=== PATIENT | male | born 1965 | race Caucasian/White ===

== ENCOUNTER 2024-05-22 17:06 | Emergency (ER) | payer SELFPAY ==
[~2024-05-22] VITALS: Ht 170.2 cm; Wt 70.0 kg
[2024-05-22 17:12] VITALS: BP 123/73; PULSE 95; RESP 18; TEMP 98.7; O2SAT 98
[2024-05-22] MEDS: HYDROCODONE/ACETAMINOPHEN 5/325MG TABLET PO ONE (18:00)
[2024-05-22] MEDS: ONDANSETRON 4MG ODT PO ONE (18:00)
[2024-05-22 20:32] LABS: BASOPHILS % 0.8 % (0.0-2.0); EOSINOPHILS % 3.1 % (0.0-5.0); HEMATOCRIT. 41.6 % (42.0-52.0); HEMOGLOBIN. 14.5 g/dL (14.0-18.0); LYMPHOCYTES % 31.9 % (20.0-50.0); MEAN CORPUSCULAR HEMOGLOBIN 31.9 pg (28.0-32.0); MEAN CORPUSCULAR HGB CONC 34.9 g/dL (31.0-37.0); MEAN CORPUSCULAR VOLUME 91.3 fL (80.0-94.0); MEAN PLATELET VOLUME 7.5 fl (7.4-10.4); NEUTROPHILS % 55.2 % (40.0-76.0); PLATELET 320 x1000/uL (130-400); RED BLOOD CELL COUNT 4.55 mill/uL (4.7-6.1); RED CELL DISTRIBUTION WIDTH 12.9 % (11.6-14.6); WHITE BLOOD COUNT 7.4 x1000/uL (4.5-11.0)
[2024-05-22 20:42] LABS: CHLORIDE 104 mEq/L (98-107); POTASSIUM 3.8 mEq/L (3.5-5.1); SODIUM 138 mEq/L (136-145)
[2024-05-22 20:43] LABS: CALCIUM 10.2 mg/dL (8.7-10.4); CARBON DIOXIDE 24 mEq/L (21-32)
[2024-05-22 20:44] LABS: INR 0.9; PROTHROMBIN TIME 10.1 sec (9.6-11.0)
[2024-05-22 20:48] LABS: CREATININE 0.7 mg/dL (0.6-1.3); ETHANOL BLOOD < 10 mg/dL (<10); GLUCOSE 94 mg/dL (70-105); UREA NITROGEN BLOOD 16 mg/dL (9-23)
[2024-05-22 20:50] LABS: ALANINE AMINOTRANSFERASE 27 IU/L (10-49); ALBUMIN 4.4 g/dL (3.2-4.8); ASPARTATE AMINOTRANSFERASE 18 IU/L (<34); BILIRUBIN DIRECT 0.1 mg/dL (<=3.0); BILIRUBIN TOTAL 0.4 mg/dL (0.1-1.0); PROTEIN TOTAL 7.2 g/dL (6.0-8.3)
[2024-05-23] MEDS ORDERED: IOHEXOL-300 100 ML BOTTLE ONE (00:01)
[2024-05-23] MEDS ORDERED: IBUP-2028 MT (00:06)
[2024-05-23] MEDS ORDERED: LIDO700A15 TP (00:06)
[2024-05-23] MEDS ORDERED: TOPUD PO (00:06)
[2024-05-23] MEDS ORDERED: METH-653 MT (00:06)
[2024-05-23] MEDS ORDERED: IBUPROFEN 400MG TABLET PO ONE (00:15)
== END 2024-05-23 00:57 | disposition home or self-care (01) ==
LOC: ER 17:06
DX: M54.50 Low back pain, unspecified (principal); I10 Essential (primary) hypertension; E11.9 Type 2 diabetes mellitus without complications; Z79.4 Long term (current) use of insulin; X58.XXXA Exposure to other specified factors, initial encounter; Y93.55 Activity, bike riding; Y92.89 Other specified places as the place of occurrence of the external cause; Y99.8 Other external cause status
CPT/HCPCS: 80076; 80048; 80320; 85025; 85610; 36415; 70450; 70486; 71260; 72125; 74177; 99285; Q0162; Q9967; 99283; G0480